=== PATIENT | female | born 2000 | race Caucasian/White ===

== ENCOUNTER → 2022-05-22 10:25 | Outpatient (BNVA) | payer MEDICAID, SELFPAY | PROVIDERS: Visit Provider Obstetrics & Gynecology | DX: Z34.90 Encounter for supervision of normal pregnancy, unspecified, unspecified trimester (principal); Z12.4 Encounter for screening for malignant neoplasm of cervix | CPT/HCPCS: 80307; 81000; 81025; 87086; 87491; 87591; 87661; 88175 ==

== ENCOUNTER → 2022-06-15 12:30 | Outpatient (BNVA) | payer MEDICAID, SELFPAY | PROVIDERS: Visit Provider Nurse Practitioner Women's Health | DX: Z34.92 Encounter for supervision of normal pregnancy, unspecified, second trimester (principal); Z3A.00 Weeks of gestation of pregnancy not specified | CPT/HCPCS: 81000; 86803; 87340; 87806 ==

== ENCOUNTER → 2022-07-10 14:19 | Outpatient (BNVA) | payer MEDICAID, SELFPAY | PROVIDERS: Visit Provider Obstetrics & Gynecology | DX: Z34.92 Encounter for supervision of normal pregnancy, unspecified, second trimester (principal); Z3A.18 18 weeks gestation of pregnancy | CPT/HCPCS: 76805 ==

== ENCOUNTER → 2022-07-13 13:45 | Outpatient (BNVA) | payer MEDICAID, SELFPAY | PROVIDERS: Visit Provider Obstetrics & Gynecology | DX: Z34.92 Encounter for supervision of normal pregnancy, unspecified, second trimester (principal) | CPT/HCPCS: 80307; 81000; 85025; 86592; 86762; 86850; 86900 ==

== ENCOUNTER → 2022-07-26 11:17 | Outpatient (BNVA) | payer MEDICAID, SELFPAY | PROVIDERS: Visit Provider Obstetrics & Gynecology | DX: O36.8190 Decreased fetal movements, unspecified trimester, not applicable or unspecified (principal); Z3A.00 Weeks of gestation of pregnancy not specified | CPT/HCPCS: 76816 ==

== ENCOUNTER 2022-07-28 11:23 | Emergency (ER) | payer MEDICAID, SELFPAY ==
[2022-07-28 11:31] VITALS: BP 109/68; PULSE 82; RESP 16; TEMP 36.6; O2SAT 98
--- NOTE | 2022-07-28 12:20 | USR_ITS ---
PROCEDURE INFORMATION: Exam: US , Limited Exam date and time: 07/28/2022 12:43 PM Age: 22 years old Clinical indication: Injury or trauma; Fall; ; Additional info: Trauma - decreased movement LABS AND CLINICAL REPORTS: Last menstrual period start date: 03/03/2022 Gestational age (Established): 21 w 0 d Estimated due date (Established): 12/08/2022 TECHNIQUE: Imaging protocol: Real-time ultrasound of the maternal uterus with image documentation. Exam focused on the clinical indication. COMPARISON: [place] [id number] 07/26/2022 11:21 AM FINDINGS: Gestation: Single live intrauterine gestation heart rate: 136 bpm presentation: Breech Placenta: Anterior. BIOMETRY: Gestational age (AUA): 21 w 4 d Femur length (FL): 3.6 cm. EGA (FL) is 21 w 4 d MATERNAL: Cervix: Unremarkable closed cervix.. US/US OB limited [id number] IMPRESSION: Single live intrauterine gestation with estimated age of 21 weeks 4 days.
--- NOTE | 2022-07-28 12:21 | W.ED.FALL ---
HPI - Fall General: Chief Complaint: Fall Stated Complaint: fall/20 wk preg Time Seen by Provider: 07/28/22 12:08 Source: patient History of Present Illness: 22-year-old female who comes in complaining of the right flank pain after a fall. She is also concerned because she is 21 weeks she is not feeling the baby move as much is normal. No vaginal bleeding, no fluid leaking. Injury occurred at 430 this morning. She slid down her front stairs, landing on the floor at the bottom. She denies hitting her head. No loss of consciousness. She states she has not felt the baby move since the fall. Associated symptoms-after fall: Denies hematuria Review of Systems : Denies: difficulty voiding, hematuria, vaginal bleeding or vaginal discharge Musc: Reports: back pain; Denies: extremity pain PFSH ED PFSH: Medical History No pertinent past medical history neghx: htn,dm, thyroid,dvt/pe PCP: None Surgical History No pertinent past surgical history Family History Denies family history of Colon cancer Pancreatic cancer Ovarian cancer Thyroid cancer Diabetes CAD (coronary artery disease) Clotting disorder Hyperlipidemia Breast cancer Cancer Hypertension Uterine cancer Stroke Physical Exam Const: COMMON NORMALS: no acute distress, average body habitus, patient oriented x3 and healthy appearing HENMT: COMMON NORMALS: normocephalic and atraumatic HEAD & SCALP: normocephalic and atraumatic Neck/C-Spine: COMMON NORMALS: full ROM and supple CERVICAL SPINE: Yes cervical ROM normal, Yes Cervical spine tenderness and Yes Paracervical muscle tenderness Resp: COMMON NORMALS: normal respiratory effort Cardio: RATE: Other (Normal heart rate) GI: OTHER: gravid uterus, abdomen is nontender Back/Pelvis: OTHER: Tenderness of the right paraspinous muscles, no bruising noted. Neuro: COMMON NORMALS: patient oriented x3 OTHER: Normal motor and sensory function. Course ED course: Patient's been evaluated in the emergency department. She had a urinalysis performed to rule out renal injury. She is also had an ultrasound to evaluate the status. On ultrasound she does have a 21-week 4-day IUP with a heart rate of 134. No signs of placental disruption. She does have a breech presentation. Urinalysis shows mild bacteriuria but is contaminated with epithelial cells and going to hold off on treating it. Feel patient stable for discharge home. She can take Tylenol as needed for pain. Ice to the sore area. Return precautions have been discussed including increased pain, vaginal bleeding, fluid leaking or lack of movement. I have instructed her to follow-up this next week with her OB doctor. Vital Signs: Vital signs: Vital Signs Temperature 97.8 F 07/28/22 11:31 Pulse Rate 82 07/28/22 11:31 Respiratory Rate 16 07/28/22 11:31 Blood Pressure 109/68 07/28/22 11:31 Pulse Oximetry 98 07/28/22 11:31 Oxygen Delivery Me thod 07/28/22 11:31 MDM - Fall Medical Decision Making 21-week 22-year-old who presents after a minor trauma fall, landing on her back at the bottom of a short stairwell, slid down the steps. She has minimal paraspinous muscular tenderness on the right. No bruising noted here. No uterine tenderness but she has not felt movement since the fall. She has not had vaginal bleeding or fluid leakage. Do not feel she has skeletal trauma as she has no C-spine tenderness, no hip tenderness, no pelvis tenderness. I do not feel that radiologic imaging of her axial skeleton is indicated. We will obtain a pelvic ultrasound to evaluate the baby. We will send urinalysis to rule out hematuria for possible renal injury. Most likely she is got contusion of the paraspinous musculature of the right flank area. Differential includes placental abruption, trauma, intrarenal injury, musculoskeletal trauma, muscular contusion Medical Records I reviewed the patient's medical records. Lab Data I reviewed the patient's lab results. Patient's urinalysis does show 0-4 white blood cells, 2+ bacteria but there is also 0-4 epithelial cells so I suspect that this is a contaminated urine specimen. I am going to hold off on treating for bacteriuria. Radiology Impressions Obstetrics Ultrasound 07/28/22 12:20 IMPRESSION: Single live intrauterine gestation with estimated age of 21 weeks 4 days. Laboratory Results Urine Color Yellow (Yellow) 07/28/22 13:35 Urine Appearance Hazy (CLEAR) A 07/28/22 13:35 Urine pH 7 (5-7) 07/28/22 13:35 Ur Specific Benson 1.010 (1.005-1.030) 07/28/22 13:35 Urine Protein Neg (Negative) 07/28/22 13:35 Urine Glucose (UA) Norm (Normal) 07/28/22 13:35 Urine Ketones Negative (Negative) 07/28/22 13:35 Urine Blood Neg (Negative) 07/28/22 13:35 Urine Nitrate Negative (Negative) 07/28/22 13:35 Urine Bilirubin Neg (Negative) 07/28/22 13:35 Urine Urobilinogen Norm mg/dL (Negative) 07/28/22 13:35 Ur Leukocyte Esterase Negative (Negative) 07/28/22 13:35 Urine RBC 0-4 /hpf (0-2) H 07/28/22 13:35 Urine WBC 0-4 /hpf (0-5) H 07/28/22 13:35 Ur Squamous Epith Cells 0-4 /hpf (0-5) H 07/28/22 13:35 Amorphous Sediment 3+ /hpf 07/28/22 13:35 Urine Bacteria 2+ /hpf (NONE) H 07/28/22 13:35 Imaging Data US: Radiologist's impression: FINDINGS: Gestation: Single live intrauterine gestation heart rate: 136 bpm presentation: Breech Placenta: Anterior. BIOMETRY: Gestational age (AUA): 21 w 4 d Femur length (FL): 3.6 cm. EGA (FL) is 21 w 4 d MATERNAL: Cervix: Unremarkable closed cervix.. / OB limited [id number] IMPRESSION: Single live intrauterine gestation with estimated age of 21 weeks 4 days. ? Discharge Plan Discharge Patient Disposition: Home Clinical Impression: Contusion of flank, Fall, Condition: Stable Prescriptions: No Action PNV cmb 35-cutw-LW-omega-3-dha [id number] mg combo pack 1 pkg PO DAILY ondansetron HCl 4 mg tablet 4 mg PO Q8H Discharge Orders: Discharge ED (Routine); Ordered 07/28/22 Ordered By: Re Solorio Referrals: Dixon Andre MD [Primary Care Provider] - Discharge Diet: Advance as tolerated Discharge Activity: Increase activity as tolerated Patient Instructions: Contusion, Opioid Safety, Pain Management Activity Restrictions/Additional Instructions: Ice to the sore area. You can take Tylenol as needed for pain. Return immediately to the ER if you start having vaginal bleeding or fluid leaking. Follow-up next week with your OB doctor Coding Level of Care Code ED [employer] for Josemanuel Bland
[2022-07-28 13:50] LABS: Add Urine Culture? No; Add Urine Microscopic? YES; Amorphous Sediment Urine 3+ /hpf; Bacteria Urine 2+ /hpf; Bilirubin Urine Neg (Negative); Blood Urine Neg (Negative); Glucose Urine UA Norm (Normal); Ketones Urine Negative (Negative); Leukocyte Esterase Urine Negative (Negative); Nitrate Urine Negative (Negative); Protein Urine Neg (Negative); RBC Urine 0-4 /hpf (0-2); Squamous Epithelial Cell Urine 0-4 /hpf (0-5); Urine Appearance Hazy (CLEAR); Urine Color Yellow (Yellow); Urobilinogen Urine Norm (Negative); WBC Urine 0-4 /hpf (0-5); pH Urine 7 (5-7)
[2022-07-28 14:26] VITALS: BP 112/66; PULSE 94; RESP 16; O2SAT 100
== END 2022-07-28 14:27 | disposition home or self-care (01) ==
PROVIDERS: Emergency Provider Emergency Medicine; PCP Obstetrics & Gynecology
DX: O26.892 Other specified pregnancy related conditions, second trimester (principal); Z3A.21 21 weeks gestation of pregnancy; S30.1XXA Contusion of abdominal wall, initial encounter; W19.XXXA Unspecified fall, initial encounter
CPT/HCPCS: 76815; 81001; 99284

== ENCOUNTER → 2022-08-22 14:04 | Outpatient (BNVA) | payer MEDICAID, SELFPAY | PROVIDERS: PCP Obstetrics & Gynecology; Visit Provider Nurse Practitioner Women's Health | DX: Z34.92 Encounter for supervision of normal pregnancy, unspecified, second trimester (principal); Z78.9 Other specified health status; Z3A.00 Weeks of gestation of pregnancy not specified | CPT/HCPCS: 80307; 81000; 82950; 86787 ==

== ENCOUNTER → 2022-09-04 13:43 | Outpatient (BNVA) | payer MEDICAID, SELFPAY | PROVIDERS: PCP Obstetrics & Gynecology; Visit Provider Obstetrics & Gynecology | DX: Z34.92 Encounter for supervision of normal pregnancy, unspecified, second trimester (principal); Z3A.00 Weeks of gestation of pregnancy not specified | CPT/HCPCS: 76816; 76820; 81000 ==

== ENCOUNTER → 2022-09-18 08:55 | Outpatient (BNVA) | payer MEDICAID, SELFPAY | PROVIDERS: PCP Obstetrics & Gynecology; Visit Provider Nurse Practitioner Women's Health | DX: Z34.90 Encounter for supervision of normal pregnancy, unspecified, unspecified trimester (principal) | CPT/HCPCS: 81000; 85025 ==

== ENCOUNTER 2022-10-02 09:08 | Outpatient (CLI) | payer MEDICAID, SELFPAY ==
--- NOTE | 2022-10-02 09:19 | US_ITS ---
WS: [id number] OB ultrasound for biophysical profile, 10/02/2022 Clinical Data: baby measuring small Comparison: OB ultrasound, 09/04/2022 Findings: There is a single intrauterine in the vertex presentation. The heart rate is 138 beat s per minute. The placenta is anterior. The biophysical profile is 8 of 8 with normal scores for breathing, movement, posture and tone and amniotic fluid volume. Measurements of growth and development: BPD 7.83 cm 31 weeks 3 days HC 29.58 cm 32 weeks 5 days AC27.30 cm 31 weeks 3 days FL 6.12 cm 31 weeks 5 days Estimated weight, 1806 g, 3 lbs. 16 oz., 50th percentile based on GA Gestational age 31 weeks 6 days [place] 11/28/2022 US/US OB lmt w/ BPP wo NST Impression: 1. Single intrauterine in vertex presentation. 2. Biophysical profile 8 of 8. 3. heart rate 138 beats per minute.
[2022-10-02 09:22] VITALS: BP 119/80; PULSE 131
[2022-10-02 09:32] VITALS: BP 114/74; PULSE 99
[2022-10-02 09:33] VITALS: RESP 18; BMI 23.8
[2022-10-02 09:43] VITALS: BP 119/80; PULSE 62
== END 2022-10-02 11:35 | disposition home or self-care (01) ==
LOC: OPOB 09:14 → OBGYN 09:14
PROVIDERS: PCP Obstetrics & Gynecology; Visit Provider Obstetrics & Gynecology
DX: Z36.9 Encounter for antenatal screening, unspecified (principal)
CPT/HCPCS: 59025; 76815; 76819; 81000

== ENCOUNTER → 2022-10-09 08:06 | Outpatient (BNVA) | payer MEDICAID, SELFPAY | PROVIDERS: PCP Obstetrics & Gynecology; Visit Provider Obstetrics & Gynecology | DX: O36.5990 Maternal care for other known or suspected poor fetal growth, unspecified trimester, not applicable or unspecified (principal); Z3A.00 Weeks of gestation of pregnancy not specified | CPT/HCPCS: 76819; 76820 ==

== ENCOUNTER 2022-10-09 09:57 | Outpatient (CLI) | payer MEDICAID, SELFPAY ==
[2022-10-09 10:06] VITALS: BP 111/71; PULSE 83
[2022-10-09 10:17] VITALS: BMI 24.0
== END 2022-10-09 11:10 | disposition home or self-care (01) ==
LOC: OPOB 10:01 → OBGYN 10:01
PROVIDERS: PCP Obstetrics & Gynecology; Visit Provider Obstetrics & Gynecology
DX: Z36.4 Encounter for antenatal screening for fetal growth retardation (principal)
CPT/HCPCS: 59025; 81000

== ENCOUNTER → 2022-10-16 10:43 | Outpatient (BNVA) | payer MEDICAID, SELFPAY | PROVIDERS: PCP Obstetrics & Gynecology; Visit Provider Obstetrics & Gynecology | DX: Z34.00 Encounter for supervision of normal first pregnancy, unspecified trimester (principal); Z3A.00 Weeks of gestation of pregnancy not specified | CPT/HCPCS: 76819; 76820 ==

== ENCOUNTER 2022-10-16 12:28 | Outpatient (CLI) | payer MEDICAID, SELFPAY ==
[2022-10-16 12:46] VITALS: RESP 15
[2022-10-16 12:48] VITALS: BMI 23.8
[2022-10-16 13:05] VITALS: BP 119/70; PULSE 93
== END 2022-10-16 13:08 | disposition home or self-care (01) ==
LOC: OPOB 12:30 → OBGYN 12:32
PROVIDERS: PCP Obstetrics & Gynecology; Visit Provider Obstetrics & Gynecology
DX: Z36.89 Encounter for other specified antenatal screening (principal); Z36.9 Encounter for antenatal screening, unspecified
CPT/HCPCS: 59025; 81000

== ENCOUNTER 2022-10-20 16:45 | Outpatient (CLI) | payer MEDICAID, SELFPAY ==
[2022-10-20] VITALS (28 sets, daily range): BP systolic 129–141; BP diastolic 71–85; PULSE 83–166; RESP 15–18; TEMP 36.1–36.9; O2SAT 94–100; BMI 23.8
[2022-10-20] MEDS: NIFEdipine 10 mg Capsule 30 MG PO (17:33)
[2022-10-20 17:35] LABS: Urine Appearance SL Hazy (CLEAR); Urine Color Straw (Yellow); pH Urine 8 (5-7)
[2022-10-20 17:36] LABS: Add Urine Culture? No; Bacteria Urine 1+ /hpf; Bilirubin Urine Neg (Negative); Blood Urine Neg (Negative); Glucose Urine UA Norm (Normal); Ketones Urine 1+ (Negative); Leukocyte Esterase Urine Trace (Negative); Nitrate Urine Negative (Negative); Protein Urine Neg (Negative); Sulfosalicylic Acid Urine Negative (Negative); Urobilinogen Urine Norm (Negative); WBC Urine 0-4 /hpf (0-5)
[2022-10-20] MEDS: hyDROXYzine 25 mg Capsule 50 MG PO (18:48)
== END 2022-10-20 20:27 | disposition home or self-care (01) ==
LOC: OPOB 16:50 → OBGYN 16:51
PROVIDERS: PCP Obstetrics & Gynecology; Visit Provider Obstetrics & Gynecology
DX: O26.899 Other specified pregnancy related conditions, unspecified trimester (principal); R10.9 Unspecified abdominal pain; Z3A.00 Weeks of gestation of pregnancy not specified
CPT/HCPCS: 59025; 81001; 96372; 99211; J3105

== ENCOUNTER 2022-10-23 17:08 | Outpatient (CLI) | payer MEDICAID, SELFPAY ==
[2022-10-23 17:19] VITALS: BP 108/68; PULSE 75
[2022-10-23 17:58] VITALS: BP 115/78; PULSE 92
[2022-10-23 17:59] VITALS: TEMP 36.7
--- NOTE | 2022-10-23 18:06 | USR_ITS ---
PROCEDURE INFORMATION: Exam: US , Limited Exam date and time: 10/23/2022 7:08 PM Age: 22 years old Clinical indication: Screening exam; Encounter for screening of mother; Third trimester (=28 weeks 0 days); ; Patient HX: G1-p0, no vag bleed, no pain. Perceives active movement. Patient had car trouble today, missed her ob appointment. Dr. Andre requested she come to [facility], wants efw, bpp, shelly; Additional info: Sga, need efw with bpp and shelly. LABS AND CLINICAL REPORTS: Last menstrual period start date: 02/20/2022 Gestational age (Established): 35 w 0 d Estimated due date (Established): 11/27/2022 TECHNIQUE: Imaging protocol: Real-time ultrasound of the maternal uterus with image documentation. Exam focused on the clinical indication. COMPARISON: US OB BPP wo NST w umb 10/16/2022 10:46 AM FINDINGS: Gestation: Intrauterine gestation. BIOMETRY: Gestational age (AUA): 37 w 2 d Estimated weight: 3087 g Biparietal diameter (BPD): 9.2 cm. EGA (BPD) is 37 w 3 d Head circumference (HC): 32.9 cm. EGA (HC) is 37 w 3 d Abdominal circumference (AC): 32.7 cm. EGA (AC) is 36 w 4 d Femur length (FL): 7.3 cm. EGA (FL) is 37 w 3 d Cephalic Index (CI): 85.9 % HC/AC: 1.01 FL/HC: 22.2 % FL/BPD: 79.6 % FL/AC: 22.4 % PROCEDURE INFORMATION: Exam: US Biophysical Profile Without Non-Stress Test Exam date and time: 10/23/2022 7:08 PM Age: 22 years old Clinical indication: Screening exam; Encounter for screening of mother; Third trimester (=28 weeks 0 days); ; Patient HX: G1-p0, no vag bleed, no pain. Perceives active movement. Patient had car trouble today, missed her ob appointment. Dr. Andre requested she come to [facility], wants efw, bpp, shelly; Additional info: Sga, need efw with bpp and shelly. TECHNIQUE: Imaging protocol: US biophysical profile without non-stress testing. COMPARISON: US OB BPP wo NST w umb 10/16/2022 10:46 AM FINDINGS: heart rate: 150 bpm presentation: Cephalic Placenta: Anterior and Right grade 1 placenta . Amniotic fluid: Amniotic fluid volume is high, consistent with polyhydramnios. Amniotic fluid index: SHELLY is 25.6 cm. BIOPHYSICAL PROFILE: breathing movement (BPP): 2/2 body movement (BPP): 2/2 tone (BPP): 2/2 Amniotic fluid (BPP): 2/2 Biophysical profile score (BPP): 8/8 MATERNAL ANATOMY: Cervix: Cervical length measures 4.5 cm. US/US OB BPP wo NST [id number] IMPRESSION: 1. Single viable intrauterine gestation estimated at 37 weeks 2 days. IMPRESSION: 1. Normal biophysical profile score of 8/8. 2. Mild polyhydramnios.
[2022-10-23 18:28] VITALS: BMI 24.1
[2022-10-23 18:37] VITALS: RESP 15
== END 2022-10-23 19:39 | disposition home or self-care (01) ==
LOC: OPOB 17:11 → OBGYN 17:12
PROVIDERS: PCP Obstetrics & Gynecology; Visit Provider Obstetrics & Gynecology
DX: Z36.89 Encounter for other specified antenatal screening (principal)
CPT/HCPCS: 59025; 76819; 81000

== ENCOUNTER → 2022-10-30 10:42 | Outpatient (BNVA) | payer MEDICAID, SELFPAY | PROVIDERS: PCP Obstetrics & Gynecology; Visit Provider Obstetrics & Gynecology | DX: Z34.93 Encounter for supervision of normal pregnancy, unspecified, third trimester (principal); Z3A.36 36 weeks gestation of pregnancy | CPT/HCPCS: 76815; 76819; 76820 ==

== ENCOUNTER 2022-10-30 11:51 | Outpatient (CLI) | payer MEDICAID, SELFPAY ==
[2022-10-30 11:51] VITALS: BMI 24.0
[2022-10-30 12:00] VITALS: BP 118/75; PULSE 93; TEMP 36.3
[2022-10-30 12:18] VITALS: RESP 16
[2022-10-30 12:22] VITALS: BP 109/72; PULSE 98
[2022-10-30 12:41] VITALS: BP 109/69; PULSE 83
== END 2022-10-30 12:53 | disposition home or self-care (01) ==
LOC: OPOB 11:54 → OBGYN 11:57
PROVIDERS: PCP Obstetrics & Gynecology; Visit Provider Obstetrics & Gynecology
DX: Z36.4 Encounter for antenatal screening for fetal growth retardation (principal)
CPT/HCPCS: 59025; 81000; 87081

== ENCOUNTER 2022-11-06 10:37 | Outpatient (CLI) | payer MEDICAID, SELFPAY ==
[2022-11-06 10:37] VITALS: BMI 26.6
[2022-11-06 10:47] VITALS: BP 111/77; PULSE 112
[2022-11-06 11:03] VITALS: BP 112/70; PULSE 96
--- NOTE | 2022-11-06 11:15 | US_ITS ---
WS: [id number] ULTRASOUND OB LIMITED TECHNIQUE: Limited ultrasound examination of the fetus. CLINICAL INFORMATION: Small for gestational age COMPARISON: October 30, 2022 FINDINGS: Single interuterine gestation. presentation is vertex Placental location is anterior. Placenta grade: 2 heart rate 160 BPM. Normal SHELLY with largest deep vertical pocket measuring 4.5 cm Biophysical profile 6 out of 8. breathin movement: 2 tone: 0 Amniotic fluid: 2 US/US OB BPP wo NST [id number] IMPRESSION: 1. Biophysical profile 6 out of 8 2. tone not visualized. 3. Normal SHELLY. 4. Presentation is vertex.
== END 2022-11-06 11:50 | disposition home or self-care (01) ==
LOC: OPOB 10:40 → OBGYN 10:42
PROVIDERS: PCP Obstetrics & Gynecology; Visit Provider Obstetrics & Gynecology
DX: Z36.4 Encounter for antenatal screening for fetal growth retardation (principal)
CPT/HCPCS: 36415; 59025; 76819; 80307; 81000; 82607; 82728; 82746; 83550; 85025; 99211

== ENCOUNTER → 2022-11-13 10:43 | Outpatient (BNVA) | payer MEDICAID, SELFPAY | PROVIDERS: PCP Obstetrics & Gynecology; Visit Provider Obstetrics & Gynecology | DX: Z34.00 Encounter for supervision of normal first pregnancy, unspecified trimester (principal); Z3A.00 Weeks of gestation of pregnancy not specified | CPT/HCPCS: 76819; 76820 ==

== ENCOUNTER 2022-11-13 13:17 | Inpatient (IN) | payer MEDICAID, SELFPAY ==
[2022-11-13] VITALS (14 sets, daily range): BP systolic 112–147; BP diastolic 67–88; PULSE 81–129; RESP 16; TEMP 36.9; BMI 24.1
[2022-11-13] MEDS: miSOPROStol 100 mcg tablet 25 MCG VAGINAL (14:19)
[2022-11-13 14:57] LABS: Basophils # 0.1 10^3/uL (0.0-0.1); Basophils % 0.5 %; Eosinophils # 0.1 10^3/uL (0.0-0.8); Eosinophils % 0.6 %; Hematocrit 37.2 % (37.0-47.0); Hemoglobin 11.8 g/dL (11.5-15.3); Lymphocytes % 19.9 %; Mean Corpuscular HGB Conc 31.7 g/dL (30.0-36.0); Mean Corpuscular Hemoglobin 26.5 pg (28.0-34.0); Mean Corpuscular Volume 83.6 fl (81-99); Mean Platelet Volume 12.7 fL (7.4-10.4); Monocytes # 0.5 10^3/uL (0.2-0.9); Monocytes % 5.3 %; Neutrophils # 7.16 10^3/uL (1.8-7.7); Neutrophils % 73.2 %; Nucleated Red Blood Cells % 0 %; Platelet Count 198 10^3/cmm (130-400); Red Blood Count 4.45 10^6/uL (4.1-5.3); White Blood Count 9.8 10^3/uL (4.0-10.0)
[2022-11-13] MEDS: lactated ringers 1,000 ML 999 ML IV ×2 (18:11→21:57)
[2022-11-13 19:33] LABS: Amphetamines Screen Urine Negative (Negative); Barbiturates Screen Urine Negative (Negative); Benzodiazepines Screen Urine Negative (Negative); Cocaine Screen Urine Negative (Negative); Opiate Screen Urine Negative (Negative); PCP Screen Urine Negative (Negative); THC Screen Urine Negative (Negative)
[2022-11-14] VITALS (79 sets, daily range): BP systolic 102–153; BP diastolic 58–87; PULSE 66–131; RESP 16–18; TEMP 36.6–37.2; O2SAT 91–100
[2022-11-14] MEDS: ondansetron 2 mg/ML SDV 2 mL 4 MG IVP (02:12)
--- NOTE | 2022-11-14 05:39 | PM.OPHPUD ---
Labor & Delivery H&P Update Date of Procedure: November 14, 2022 Date H&P Performed: 11/13/22 H&P update information: I have reviewed H&P completed within last 30 days, I have examined patient prior to procedure and Changes to prior documentation as noted here Changes to previous documentation: The patient was seen in the office today. She is being induced for IUGR and polyhydramnios. Admission Diagnosis: IUP@ 38w1d Related Problem List Diagnoses (1) Polyhydramnios affecting in third trimester: (2) Iron deficiency anemia during , antepartum: (3) Supervision of normal first : (4) Small for gestational age fetus affecting mother, antepartum:
[2022-11-14] MEDS: fentaNYL 50 mcg/mL INJ 2mL IVP ×3 (05:40→12:50)
[2022-11-14] MEDS: dextrose 5%-lactated ringers 1,000 ML 125 ML IV ×3 (06:09→19:28)
[2022-11-14] MEDS: lactated ringers 1,000 ML 999 ML IV (15:00)
--- NOTE | 2022-11-14 15:08 | ANES.PREANE2 ---
Pre-Anesthetic Assessment Height/Weight: Height 1.57 m Weight 59.874 kg Temp Pulse Resp BP Pulse Ox O2 Del Method 97.8 F 99 18 133/70 100 Room Air 11/14/22 14:00 11/14/22 15:02 11/14/22 14:00 11/14/22 15:02 11/14/22 15:02 11/13/22 14:00 Familial anesthetic complications: none Was Beta Luis taken within 24 hours: N/A Was Clonidine taken within 24 hours: N/A Social No alcohol and No tobacco Exam alert, oriented x 3, clear to auscultation bilaterally and regular rate & rhythm Airway Submandibular: within normal limits Cervical ROM: within normal limits Mallampati: Class II Dentition: full CV/HEM Anemia Anesthetic Plan ASA status: 2 Anesthesia: Regional (specify below) (Labor epidural) Medications/Allergies Home Medications Medication Instructions Recorded Confirmed Last Taken Type PNV-iron 29 mg-folic acid 1 1 pkg PO DAILY 05/22/22 11/13/22 11/11/22 08:00 History mg-omega3 250 mg-dha 200mg oral combo pack Allergies Allergy/AdvReac Type Severity Reaction Status Date / Time No Known Allergies Allergy Verified 11/13/22 10:42 Current Medications Generic Name Dose Route Start Last Admin Trade Name Yassineq PRN Reason Stop Dose Admin Fentanyl 25 - 100 mcg 11/13/22 13:44 11/14/22 12:50 Fentanyl 50 Mcg/Ml Inj 2ml IVP 50 mcg Q1H PRN Administration SEVERE PAIN Lactated Ringer's 1,000 mls @ 999 mls/hr 11/13/22 13:44 11/13/22 21:57 Lactated Ringers IV 999 mls/hr .Q1H1M PRN Administration Per L&D Rescitation Protocol Dextrose/Lactated Ringer's 1,000 mls @ 125 mls/hr 11/13/22 13:45 11/14/22 13:15 Dextrose 5%-Lactated Ringers IV 125 mls/hr .Q8H MARIBEL Administration Dextrose/Lactated Ringer's 1,000 mls @ 125 mls/hr 11/13/22 13:50 11/14/22 06:09 Dextrose 5%-Lactated Ringers IV 125 mls/hr .Q8H PRN Administration per label comments Oxytocin 30 unit/ Sodium 503 mls @ 1 mls/hr 11/14/22 00:45 11/14/22 10:00 Chloride IV 8 mls/hr .Q24H MARIBEL 8 mls/hr Titration Protocol Ondansetron HCl 4 mg 11/13/22 13:44 11/14/22 02:12 Ondansetron 2 Mg/Ml Sdv 2 Ml IVP 4 mg Q4H PRN Administration NAUSEA AND VOMITING PFSH Anesthesia Medical History No pertinent past medical history neghx: htn,dm, thyroid,dvt/pe PCP: None Surgical History No pertinent past surgical history Family History Denies family history of Colon cancer Pancreatic cancer Ovarian cancer Thyroid cancer Diabetes CAD (coronary artery disease) Clotting disorder Hyperlipidemia Breast cancer Cancer Hypertension Uterine cancer Stroke Female Reproductive History : 1 Data Anesthesia 11/13/22 14:15 Short CBC 11/13/22 Range/Units 14:15 WBC 9.8 (4.0-10.0) 10^3/uL Hgb 11.8 (11.5-15.3) g/dL Hct 37.2 (37.0-47.0) % MCV 83.6 (81-99) fl Plt Count 198 (130-400) 10^3/cmm Neut % (Auto) 73.2 % Neut # (Auto) 7.16 (1.8-7.7) 10^3/uL Cardiac Studies: No Data to Display Anesthesia Procedures Epidural Time Out Performed: Yes Consents Signed: Procedure Consent Consent: requested by attending/covering physician, from patient, risks and benefits reviewed and patient agrees to proceed Lumbar Level: L3-L4 Epidural position: sitting Epidural procedure: sterile prep of area, 1% lidocaine to numb the area, 18 g needle, neg for paresthesia, test dose given, 1.5% xylocaine 1:200k epi, 0.2% Ropivacaine bolus ml (5), placed PCEA, no systemic response, sterile dressing applied and 0.2% Ropiavacaine @ mls/hr (10) Additional Comments: JAYLEEN at 4cm, cath at 9cm
--- NOTE | 2022-11-14 23:09 | PM.DELIVERY ---
Delivery Note: Date of delivery: November 14, 2022 Pre-delivery diagnoses: Term . IUGR. Polyhydramnios. Post-delivery diagnoses: Term . Small for gestational age. Polyhydramnios Procedure: Post status vaginal delivery Delivering Physician: Dixon Andre MD Estimated blood loss (mL): 300 Delivery: The patient was noted to be complete and pushing, so was placed in the dorsal lithotomy position, prepped and draped in the usual sterile fashion for a vaginal delivery. Pt. Noted to have epidural anesthesia. At 2257 the patient delivered a viable 39 weeks female weighing 2815 g with scores of 7 and 8 at one and five minutes, respectively. The vertex was delivered spontaneously over intact perineum. The patient was asked to push and the head delivered spontaneously in the ROMERO position, over an intact perineum. A nuchal cord was checked and none noted. The anterior shoulder delivered easily and the posterior shoulder followed. The remainder of the infant was easily delivered and the oropharynx and nasopharynx was bulb suctioned. The infant was noted to have spontaneous cry and spontaneous movement of all four extremities. The cord was clamped x 2 and cut and noted to have 2 arteries and one vein. The was passed to the mother's abdomen where nursing personnel were in attendance. Cord blood sample was then obtained. The placenta delivered intact spontaneously and the uterus was explored. 20 units of Pitocin was placed in the IV bag to firm the uterus. Examination of the cervix and vaginal vault did not reveal any lacerations. A vaginal pack was then placed. Examination of the perineum showed no laceration. The vaginal pack was then removed. The patient tolerated this procedure well, and recovered in L&D with her infant in the LDR room. All sponge and needle counts were correct. Post-Delivery Status: Good and hemodynamically stable History History History 1 Term 0 0 Miscarriages/Ectopic 0 Living Children 0 Coding Level of Care Code Acute Code for Chg Fwd Diagnoses
[2022-11-15] VITALS (14 sets, daily range): BP systolic 111–133; BP diastolic 64–89; PULSE 55–115; RESP 15–16; TEMP 37.1; O2SAT 97
[2022-11-15] MEDS: lanolin oint 7 gm 1 APPLIC TOPICAL (02:28)
[2022-11-15] MEDS: benzocaine-menthol 78 gm Canister 1 SPRAY TOPICAL (02:32)
[2022-11-15] MEDS: ibuprofen 800 mg tablet PO ×3 (09:09→20:26)
[2022-11-15] MEDS: prenatal vitamin Capsule 1 CAP PO (09:09)
[2022-11-15] MEDS: docusate sodium 100 mg Capsule PO ×2 (09:09→20:26)
[2022-11-15 12:21] LABS: Hematocrit 30.7 % (37.0-47.0); Hemoglobin 9.7 g/dL (11.5-15.3); Mean Corpuscular HGB Conc 31.6 g/dL (30.0-36.0); Mean Corpuscular Volume 82.3 fl (81-99); Mean Platelet Volume 12.7 fL (7.4-10.4); Platelet Count 172 10^3/cmm (130-400); Red Blood Count 3.73 10^6/uL (4.1-5.3); Red Cell Distribution Width 14.1 % (12.1-15.1); White Blood Count 24.6 10^3/uL (4.0-10.0)
[2022-11-15] MEDS: acetaminophen 325 mg Tablet 650 MG PO (12:24)
--- NOTE | 2022-11-15 13:17 | ANE.PACU2 ---
Inpatient post-anesthesia follow up: Airway intact: Yes Vital signs: Temperature 98.8 F Pulse Rate 88 Respiratory Rate 15 Blood Pressure 111/71 Pulse Oximetry 97 Oxygen Delivery Me thod Room Air Oxygen Flow Rate Fraction of Inspir ed Oxygen Hydration adequate: Yes Nausea and vomiting: No Pain level: 2 Mental status: Baseline
[2022-11-16] MEDS: docusate sodium 100 mg Capsule PO (08:19)
[2022-11-16] MEDS: ibuprofen 800 mg tablet PO (08:19)
[2022-11-16] MEDS: prenatal vitamin Capsule 1 CAP PO (08:19)
--- NOTE | 2022-11-16 09:00 | P.DS_ITS ---
Discharge Providers PARQUETRY FLOOR LAYER Date of Admission: 11/13/22 13:17 Date of Discharge: 11/16/22 Attending Provider at Admission: Dixon Adnre MD Attending Provider at Discharge: Dixon Andre MD Primary Care Provider: Dixon Andre MD Diagnoses at Discharge Discharge Diagnosis (1) Polyhydramnios affecting in third trimester: Status: Acute (2) Iron deficiency anemia during , antepartum: Status: Acute Permanent problem details: At 30 weeks hemoglobin was down to 9; started ferrous sulfate 325 twice daily (3) Small for gestational age fetus affecting mother, antepartum: Status: Acute Qualifiers: Fetus number: single or unspecified fetus Qualified Code(s): O36.5990 - Maternal care for other known or suspected poor growth, unspecified trimester, not applicable or unspecified Reason for Visit Reason for Visit: IEP Hospital Course Hospital Course Mrs. Soto 22-year-old female established patient with an LMP of 02/20/22, and an [place]RA[place] of 11/27/22 with an estimated gestational age at 39 weeks. Admitted for elective induction due to IUGR and polyhydramnios. She progressed to have a spontaneous vaginal delivery without complications. She is afebrile and hemodynamically stable day 1. Ambulating without difficulty. She was counseled regarding pelvic rest for 6 weeks (no sex, no tampons, no vaginal douches). Return to the emergency room if any fever, increased bleeding or pain. Information Peripartum Data: Infant Delivery Method: Vaginal Physical Exam Narrative: GA; alert and oriented x 3 HEENT: normal Breasts: engorged Nipples - skin intact Lungs; clear to auscultation Heart: regular rhythm, no murmurs. Abd: Appropriately tender. BS+. Uterine fundus below umbilicus. No Fundal Tenderness. Perineum: normal lochia. Extremities: no edema, no cyanosis, no tenderness. Urinary Catheter Management: Christine: Cath Placed During This Visit: yes, but has since been removed by the nurse Reason for Continuing Indwelling Catheter: Decision to DC Catheter Urinary Catheter Date of Insertion: 11/14/22 Urinary Catheter Time of Insertion: 15:10 Date Urinary Catheter Removed: 11/14/22 Time Urinary Catheter Discontinued: 22:46 History History History 1 Term 0 0 Miscarriages/Ectopic 0 Living Children 0 Discharge Data Studies Completed and Pending Laboratory Results WBC 24.6 10^3/uL (4.0-10.0) H 11/15/22 12:00 RBC 3.73 10^6/uL (4.1-5.3) L 11/15/22 12:00 Hgb 9.7 g/dL (11.5-15.3) L 11/15/22 12:00 Hct 30.7 % (37.0-47.0) L 11/15/22 12:00 MCV 82.3 fl (81-99) 11/15/22 12:00 MCH 26.0 pg (28.0-34.0) L 11/15/22 12:00 MCHC 31.6 g/dL (30.0-36.0) 11/15/22 12:00 RDW 14.1 % (12.1-15.1) 11/15/22 12:00 Plt Count 172 10^3/cmm (130-400) 11/15/22 12:00 MPV 12.7 fL (7.4-10.4) H 11/15/22 12:00 Neut % (Auto) 73.2 % 11/13/22 14:15 Lymph % (Auto) 19.9 % 11/13/22 14:15 [place] % (Auto) 5.3 % 11/13/22 14:15 Eos % (Auto) 0.6 % 11/13/22 14:15 Baso % (Auto) 0.5 % 11/13/22 14:15 Neut # (Auto) 7.16 10^3/uL (1.8-7.7) 11/13/22 14:15 Lymph # (Auto) 2.0 10^3/uL (0.8-4.8) 11/13/22 14:15 [place] # (Auto) 0.5 10^3/uL (0.2-0.9) 11/13/22 14:15 Eos # (Auto) 0.1 10^3/uL (0.0-0.8) 11/13/22 14:15 Baso # (Auto) 0.1 10^3/uL (0.0-0.1) 11/13/22 14:15 Nucleated RBC % (auto) 0 % 11/13/22 14:15 Nucleated RBCs # 0.0 /100WBC 11/13/22 14:15 Urine Opiates Screen Negative ng/mL (Negative) 11/13/22 19:13 Ur Barbiturates Screen Negative ng/mL (Negative) 11/13/22 19:13 Ur Phencyclidine Scrn Negative ng/mL (Negative) 11/13/22 19:13 Ur Amphetamines Screen Negative ng/mL (Negative) 11/13/22 19:13 U Benzodiazepines Scrn Negative ng/mL (Negative) 11/13/22 19:13 Urine Cocaine Screen Negative ng/mL (Negative) 11/13/22 19:13 U Marijuana (THC) Screen Negative ng/mL (Negative) 11/13/22 19:13 Vitals Last Vital Signs Temp 98.8 F 11/15/22 02:55 Pulse 84 11/15/22 22:44 Resp 16 11/15/22 22:44 BP 118/69 11/15/22 22:44 Pulse Ox 97 11/15/22 16:00 O2 Del Method Room Air 11/15/22 22:44 Discharge Plan Discharge Patient Disposition: Home Condition: Stable Prescriptions: New acetaminophen 325 mg capsule 325 mg PO Q4H PRN (Reason: fever or pain) Qty: 60 0RF ibuprofen 800 mg tablet 800 mg PO TID PRN (Reason: pain) Qty: 60 0RF docusate sodium [Colace] 100 mg capsule 100 mg PO BID Qty: 60 0RF ferrous sulfate [Iron (ferrous sulfate)] 325 mg (65 mg iron) tablet 325 mg PO BID Qty: 60 0RF Continued PNV cmb 80-[id number]-PL-omega-3-dha 73-7-119-200 mg combo pack 1 pkg PO DAILY Discharge Orders: Discharge Order (Routine); Ordered 11/16/22 Ordered By: Dixon Andre Discharge Diet: Usual diet Discharge Activity: Limit activity as instructed Patient Instructions: Opioid Safety, Your [place] Appearance (GEN), Vaginal Delivery (GEN), Bleeding (GEN), Caring for Your Baby (GEN) Activity Restrictions/Additional Instructions: 1. Please call [facility] on next working day to make your appointment in 6 weeks. 2. Please stay home until you come back to the clinic on first post- hospatilization check up. 3. Please follow instructions on your medications CAREFULLY. 4. If you have abdominal incision, do not cover it unless dressing is necessary because of drainage. OK to shower, but avoid bath. Leave steri-strips until they fall off. If they are still on one week after surgery, you may remove them. 5. If you had vaginal surgery or vaginal repair, Dr. Andre may instruct you to take SITZ bath. 6. Yellow, blood tinged odorous vaginal discharge is usually normal after hysterectomy or vaginal surgeries. 7. No SEXUAL INTERCOURSE, tampons, or douches until you are completely released from the post-operative care. 8. Avoid constipation by eating right and maybe using some Metamucil or Milk of Magnesia. 9. All prescription refills are given during the working hours. Please do no wait till it runs out. Call the clinic at [phone] before your medication runs out. The clinic will get in touch with your doctor to prescribe medications if necessary. 10. Please remain within 40 mile radius from our hospital because emergencies do happen now and then during the post-operative period. 11. If you have stairs at home, take one step at a time slowly and minimize the number of trips. It helps to stay in one floor for the next few days. No lifting except what you can lift by one hand until you are released from the post-operative care. 12. Driving is discouraged until you are well healed. It may be 3-4 weeks before you feel strong enough to drive. You should be able to turn and look through the rear window without pain and you should be able to push the brake pedal very hard without pain before you drive. No fast rules, but SAFETY should be your primary concern. DO NOT drive if you are on sedating medications such as narcotics. 13. Call the clinic (during working hours) to make urgent appointment or go to the Emergency room, if any of the following occurs: i. Vaginal bleeding becomes heavy, more than a period. ii. Incision becomes red and sore, or drains pus. iii. Your TEMPERATURE is over 100.4F or you have chill. iv. IV site becomes red and swollen (a little ``knot?? is usually OK) v. Persistent nausea and vomiting vi. Persistent constipation or diarrhea vii. Rash or allergic reaction to medications. Discharge Attestations PARQUETRY FLOOR LAYER Time Spent in Discharge Care*: greater than 30 min Coding Level of Care Code Acute Code for Chg Fwd Diagnoses Polyhydramnios affecting in third trimester O40.3XX0 Iron deficiency anemia during , antepartum O99.019; D50.9 Small for gestational age fetus affecting mother, antepartum O36.5990 Fetus number: single or unspecified fetus
[2022-11-16 09:30] VITALS: BP 122/62; PULSE 78
== END 2022-11-16 11:00 | disposition home or self-care (01) | DRG 806 ==
PROVIDERS: Admitting Provider Obstetrics & Gynecology; PCP Obstetrics & Gynecology; Visit Provider Obstetrics & Gynecology
DX: O36.5930 Maternal care for other known or suspected poor fetal growth, third trimester, not applicable or unspecified (principal); O99.324 Drug use complicating childbirth; Z37.0 Single live birth; O40.3XX0 Polyhydramnios, third trimester, not applicable or unspecified; F12.90 Cannabis use, unspecified, uncomplicated; O99.02 Anemia complicating childbirth; D64.9 Anemia, unspecified; Z3A.39 39 weeks gestation of pregnancy; Z87.891 Personal history of nicotine dependence; D50.9 Iron deficiency anemia, unspecified
CPT/HCPCS: 36415; 51702; 59025; 59409; 80306; 85025; 85027; 96374; 96375; 99211; J2405; J2795; J3010; J7040; J7120; J7121

== ENCOUNTER 2023-09-23 19:29 | Outpatient (CLI) | payer MEDICAID, SELFPAY | END 2023-09-23 19:30 | disposition home or self-care (01) | PROVIDERS: PCP Obstetrics & Gynecology; Visit Provider Family Medicine | DX: R10.9 Unspecified abdominal pain (principal); N39.0 Urinary tract infection, site not specified; A64 Unspecified sexually transmitted disease; N89.8 Other specified noninflammatory disorders of vagina | CPT/HCPCS: 81000; 81025; 87077; 87086; 87184; 87491; 87591 ==

== ENCOUNTER → 2023-09-24 | Outpatient (BNVA) | payer SELFPAY | PROVIDERS: PCP Obstetrics & Gynecology; Visit Provider Family Medicine | DX: R30.9 Painful micturition, unspecified (principal); N39.0 Urinary tract infection, site not specified; A64 Unspecified sexually transmitted disease; N89.8 Other specified noninflammatory disorders of vagina; R10.9 Unspecified abdominal pain | CPT/HCPCS: 87491; 87591 ==

== ENCOUNTER → 2023-11-04 18:03 | Outpatient (BNVA) | payer MEDICAID, SELFPAY | PROVIDERS: PCP Obstetrics & Gynecology; Visit Provider Family Medicine | DX: Z32.00 Encounter for pregnancy test, result unknown (principal); N92.6 Irregular menstruation, unspecified | CPT/HCPCS: 81025; 84702 ==

== ENCOUNTER → 2023-11-25 08:18 | Outpatient (BNVA) | payer MEDICAID, SELFPAY | PROVIDERS: PCP Obstetrics & Gynecology; Visit Provider Nurse Practitioner Women's Health | DX: Z34.90 Encounter for supervision of normal pregnancy, unspecified, unspecified trimester (principal); Z3A.00 Weeks of gestation of pregnancy not specified; N92.6 Irregular menstruation, unspecified | CPT/HCPCS: 81025; 84315 ==

== ENCOUNTER → 2023-12-03 14:58 | Outpatient (BNVA) | payer MEDICAID, SELFPAY | PROVIDERS: Visit Provider Nurse Practitioner Women's Health | DX: Z34.91 Encounter for supervision of normal pregnancy, unspecified, first trimester (principal); Z3A.01 Less than 8 weeks gestation of pregnancy | CPT/HCPCS: 76801 ==

== ENCOUNTER → 2024-01-17 07:43 | Outpatient (BNVA) | payer MEDICAID, SELFPAY | PROVIDERS: Visit Provider Obstetrics & Gynecology | DX: Z34.80 Encounter for supervision of other normal pregnancy, unspecified trimester (principal) | CPT/HCPCS: 84315; 87491; 87591 ==

== ENCOUNTER → 2024-02-27 14:50 | Outpatient (BNVA) | payer MEDICAID, SELFPAY | PROVIDERS: Visit Provider Obstetrics & Gynecology | DX: Z36.2 Encounter for other antenatal screening follow-up (principal); Z3A.21 21 weeks gestation of pregnancy | CPT/HCPCS: 76805 ==

== ENCOUNTER → 2024-03-06 10:28 | Outpatient (BNVA) | payer MEDICAID, SELFPAY | PROVIDERS: Visit Provider Nurse Practitioner Women's Health | DX: Z34.80 Encounter for supervision of other normal pregnancy, unspecified trimester (principal); F12.90 Cannabis use, unspecified, uncomplicated; F17.200 Nicotine dependence, unspecified, uncomplicated; Z86.2 Personal history of diseases of the blood and blood-forming organs and certain disorders involving the immune mechanism; X58.XXXA Exposure to other specified factors, initial encounter | CPT/HCPCS: 80307; 82607; 82728; 82746; 83550; 84315; 84443; 85025; 86592; 86762; 86803; 86850; 86900; 87086; 87340; 87806 ==

== ENCOUNTER → 2024-03-20 10:24 | Outpatient (BNVA) | payer MEDICAID, SELFPAY | PROVIDERS: Visit Provider Nurse Practitioner Women's Health | DX: Z53.9 Procedure and treatment not carried out, unspecified reason (principal) | CPT/HCPCS: 84315 ==

== ENCOUNTER → 2024-03-27 10:12 | Outpatient (BNVA) | payer MEDICAID, SELFPAY | PROVIDERS: Visit Provider Nurse Practitioner Women's Health | DX: Z34.80 Encounter for supervision of other normal pregnancy, unspecified trimester (principal) | CPT/HCPCS: 82950 ==

== ENCOUNTER 2024-04-08 16:55 | Outpatient (CLI) | payer MEDICAID, SELFPAY ==
[2024-04-08 17:16] LABS: Basophils % 0.4 %; Eosinophils # 0.1 10^3/uL (0.0-0.8); Eosinophils % 1.2 %; Hematocrit 31.4 % (36-47); Lymphocytes # 2.5 10^3/uL (0.8-4.8); Lymphocytes % 29.5 %; Mean Corpuscular HGB Conc 30.9 g/dL (30-55); Mean Corpuscular Hemoglobin 25.5 pg (27-33); Mean Corpuscular Volume 82.4 fl (85-98); Mean Platelet Volume 10.9 fL (7.4-10.4); Monocytes # 0.6 10^3/uL (0.2-0.9); Monocytes % 6.7 %; Neutrophils % 61.8 %; Nucleated Red Blood Cells % 0 %; Platelet Count 223 10^3/cmm (157-399); Red Blood Count 3.81 10^6/uL (3.85-5.65); Red Cell Distribution Width 14.5 % (12.1-15.1); White Blood Count 8.55 10^3/uL (3.29-11.43)
[2024-04-08 21:12] LABS: Free T4 Free Thyroxine 1.05 ng/dL (0.82-1.77); Thyroid Stimulating Hormone 2.32 uIU/mL (0.27-4.20)
== END 2024-04-08 16:56 | disposition home or self-care (01) ==
LOC: LAB 16:56
PROVIDERS: PCP Obstetrics & Gynecology; Visit Provider Nurse Practitioner Women's Health
DX: Z34.80 Encounter for supervision of other normal pregnancy, unspecified trimester (principal); R06.02 Shortness of breath; O99.019 Anemia complicating pregnancy, unspecified trimester; D50.9 Iron deficiency anemia, unspecified; Z34.90 Encounter for supervision of normal pregnancy, unspecified, unspecified trimester
CPT/HCPCS: 36415; 84439; 84443; 85025

== ENCOUNTER → 2024-04-16 09:28 | Outpatient (BNVA) | payer MEDICAID, SELFPAY | PROVIDERS: PCP Obstetrics & Gynecology; Visit Provider Internal Medicine | DX: Z34.80 Encounter for supervision of other normal pregnancy, unspecified trimester (principal); Z3A.00 Weeks of gestation of pregnancy not specified | CPT/HCPCS: 84315; 93005 ==

== ENCOUNTER 2024-05-05 16:25 | Outpatient (CLI) | payer MEDICAID, SELFPAY ==
[2024-05-05] VITALS (16 sets, daily range): BP systolic 104–124; BP diastolic 63–78; PULSE 73–107; RESP 15; O2SAT 100; BMI 24.1
--- NOTE | 2024-05-05 17:05 | P.PN_ITS ---
MEDIA RELATIONS SPECIALIST Subjective 2 Subjective: Interval history: 24 y.o. EDC July 08, 2024 At 30 w 6 d c/o one-week history of vomiting, diarrhea, cramps can?t tolerate PO no fever, chills no abdominal pain, vaginal bleeding, fluid leakage no dysuria + active movements Labor: Amniotic Membrane Status: Intact Vitals/I&O/Wt Last Vital Signs Pulse 73 05/05/24 20:21 Resp 15 05/05/24 16:37 BP 111/63 05/05/24 20:21 Weight last 48 hrs Weight 128 lb Physical Exam 2 Narrative: VS normal General comfortable, awake, alert Abd: soft, nontender External monitor: heart tracing good variability, + accelerations LABS 05-05-24 Hgb 10.5 CMP normal UA 4+ ketones, otherwise negative Data 05/05/24 17:50 05/05/24 17:50 A&P Assessment and plan (1) Supervision of other normal : 30 w 6 d (2) Gastroenteritis: plan IV fluids, Zofran Attestations 2 Medical Necessity Statement*: patient at 30 w 6 d, with gastroenteritis and dehydration Coding Level of Care Code Acute Code for Chg Fwd Diagnoses Supervision of other normal Z34.80 Gastroenteritis K52.9 Time Spent (min) 60
[2024-05-05] MEDS: lactated ringers 1,000 ML 999 ML IV (17:30)
[2024-05-05 17:56] LABS: Bilirubin Urine Negative (Negative); Blood Urine Negative (Negative); Glucose Urine UA Negative (Normal); Ketones Urine 4+ (Negative); Leukocyte Esterase Urine Trace (Negative); Nitrate Urine Negative (Negative); Protein Urine 1+ (Negative); Specific Gravity, Urine 1.018 (1.005-1.030); Urine Appearance Cloudy (CLEAR); Urine Color Yellow (Yellow)
[2024-05-05 18:01] LABS: Bacteria Urine 1+ /hpf; Hyaline Casts Urine 1.65 /lpf; RBC Urine 0-2 /hpf (0-2); Squamous Epithelial Cell Urine 21-50 /hpf (0-5)
[2024-05-05 18:03] LABS: Add Urine Culture? No
[2024-05-05 18:13] LABS: Basophils % 0.1 %; Eosinophils % 0.3 %; Hematocrit 34.4 % (36-47); Lymphocytes # 1.4 10^3/uL (0.8-4.8); Lymphocytes % 15.9 %; Mean Corpuscular HGB Conc 30.5 g/dL (30-55); Mean Corpuscular Hemoglobin 24.4 pg (27-33); Mean Platelet Volume 11.5 fL (7.4-10.4); Monocytes # 0.7 10^3/uL (0.2-0.9); Monocytes % 8.1 %; Neutrophils # 6.77 10^3/uL (1.8-7.7); Nucleated Red Blood Cells % 0 %; Platelet Count 237 10^3/cmm (157-399); Red Cell Distribution Width 14.6 % (12.1-15.1); White Blood Count 9.02 10^3/uL (3.29-11.43)
[2024-05-05] MEDS: ondansetron 2 mg/ML SDV 2 mL 4 MG IVP (18:25)
[2024-05-05 18:43] LABS: Alanine Aminotransferase 7 U/L (0-33); Albumin Level 3.3 g/dL (3.5-5.2); Alkaline Phosphatase 130 U/L (35-105); Anion Gap 15.6 (5-19); Aspartate Amino Transferase 18 U/L (0-32); Blood Urea Nitrogen 4 mg/dL (6-20); Calcium 8.2 mg/dL (8.5-10.5); Carbon Dioxide 20 mmol/L (22-29); Chloride 106 mmol/L (98-107); Creatinine Clr Calc Pharmacy 176.1672; Globulin 3.2 g/dL (1.3-4.6); Glomerular Filtration Rate 194.5 mL/min (90-130); Glucose 77 mg/dL (65-115); Osmolality Calculated 282 mOsm/kg (285-295); Potassium 3.6 mmol/L (3.5-5.1); Sodium 138 mmol/L (136-145); Total Bilirubin 0.2 mg/dL (0.15-1.2); Total Protein 6.5 g/dL (6.6-8.7)
--- NOTE | 2024-05-05 20:15 | P.PN_ITS ---
MEMORIAL COUNSELOR Subjective 2 Subjective: Interval history: Patient states she is feeling better after IV fluids and Zofran Plan discharge to home Return if vomiting, diarrhea, abdominal pain, vaginal bleeding, fluid leakage Labor: Amniotic Membrane Status: Intact Vitals/I&O/Wt Last Vital Signs Pulse 73 05/05/24 20:21 Resp 15 05/05/24 16:37 BP 111/63 05/05/24 20:21 Weight last 48 hrs Weight 128 lb Data 05/05/24 17:50 05/05/24 17:50 A&P Assessment and plan (1) Supervision of other normal : (2) Gastroenteritis: Attestations 2 Medical Necessity Statement*: patient at 30 w 6 d with gastroenteritis, improved with IV hydration and Zofran Coding Level of Care Code Acute Code for Chg Fwd Diagnoses Supervision of other normal Z34.80 Gastroenteritis K52.9 Time Spent (min) 30
== END 2024-05-05 20:27 | disposition home or self-care (01) ==
LOC: OPOB 16:27 → OBGYN 16:28
PROVIDERS: Visit Provider Obstetrics & Gynecology
DX: Z34.80 Encounter for supervision of other normal pregnancy, unspecified trimester (principal); K52.9 Noninfective gastroenteritis and colitis, unspecified
CPT/HCPCS: 36415; 59025; 80053; 81001; 85025; 96374; 99211; J2405; J7120

== ENCOUNTER 2024-05-14 10:12 | Outpatient (CLI) | payer MEDICAID, SELFPAY ==
[2024-05-14 10:15] VITALS: BMI 22.8
[2024-05-14 10:22] VITALS: BP 112/76; PULSE 71
[2024-05-14 10:42] VITALS: BP 112/72; PULSE 67
== END 2024-05-14 10:47 | disposition home or self-care (01) ==
LOC: OPOB 10:12 → OBGYN 10:13
PROVIDERS: Visit Provider Obstetrics & Gynecology
DX: O26.899 Other specified pregnancy related conditions, unspecified trimester (principal); Z3A.00 Weeks of gestation of pregnancy not specified
CPT/HCPCS: 59025; 84315; 99211

== ENCOUNTER 2024-06-02 04:37 | Outpatient (CLI) | payer SELFPAY ==
[2024-06-02] VITALS (11 sets, daily range): BP systolic 110–148; BP diastolic 65–83; PULSE 80–127; TEMP 36.6; O2SAT 98; BMI 22.1
[2024-06-02] MEDS: ondansetron 4 MG Tablet PO (05:24)
[2024-06-02 06:04] LABS: Bilirubin Urine Negative (Negative); Blood Urine Negative (Negative); Glucose Urine UA Negative (Normal); Ketones Urine 3+ (Negative); Leukocyte Esterase Urine 1+ (Negative); Nitrate Urine Negative (Negative); Protein Urine 1+ (Negative); Urine Appearance Cloudy (CLEAR); Urine Color Dark Yellow (Yellow); pH Urine 6.5 (5-7)
[2024-06-02 06:09] LABS: Bacteria Urine Trace /hpf; RBC Urine 0-2 /hpf (0-2); WBC Urine 21-50 /hpf (0-5)
[2024-06-02] MEDS: ondansetron 2 mg/ML SDV 2 mL 4 MG IVP (06:13)
[2024-06-02] MEDS: dextrose 5%-lactated ringers 1,000 ML 125 ML IV (06:13)
[2024-06-02 06:24] LABS: Specific Gravity, Urine 1.031 (1.005-1.030)
== END 2024-06-02 09:02 | disposition home or self-care (01) ==
LOC: OPOB 04:39 → OBGYN 04:40
PROVIDERS: Visit Provider Obstetrics & Gynecology
DX: O21.9 Vomiting of pregnancy, unspecified (principal); Z3A.00 Weeks of gestation of pregnancy not specified; R10.9 Unspecified abdominal pain; R19.7 Diarrhea, unspecified
CPT/HCPCS: 59025; 81001; 99211; J2405; J7121; Q0162

== ENCOUNTER 2024-06-11 09:30 | Outpatient (CLI) | payer SELFPAY ==
[2024-06-11 09:37] VITALS: BP 122/87; PULSE 96
[2024-06-11 09:51] VITALS: BP 119/78; PULSE 112
[2024-06-11 10:06] VITALS: BP 124/81; PULSE 105
[2024-06-11 10:21] VITALS: BP 119/85; PULSE 101
[2024-06-11 10:23] VITALS: BP 126/87; PULSE 112
[2024-06-11 10:24] VITALS: BP 139/83; PULSE 83
== END 2024-06-11 10:27 | disposition home or self-care (01) ==
LOC: OPOB 09:32 → OBGYN 09:32
PROVIDERS: Visit Provider Obstetrics & Gynecology
DX: O26.899 Other specified pregnancy related conditions, unspecified trimester (principal); Z3A.00 Weeks of gestation of pregnancy not specified
CPT/HCPCS: 36415; 59025; 81000; 85025; 87081; 99211

== ENCOUNTER 2024-06-18 10:10 | Outpatient (CLI) | payer MEDICAID, SELFPAY | END 2024-06-18 10:32 | disposition home or self-care (01) | LOC: OPOB 10:11 | PROVIDERS: Absent Provider Obstetrics & Gynecology; Family Provider Obstetrics & Gynecology; Visit Provider Obstetrics & Gynecology | DX: O36.5990 Maternal care for other known or suspected poor fetal growth, unspecified trimester, not applicable or unspecified (principal); Z3A.00 Weeks of gestation of pregnancy not specified | CPT/HCPCS: 59025; 84315; 99211 ==

== ENCOUNTER 2024-06-18 10:18 | Outpatient (CLI) | payer MEDICAID, SELFPAY ==
[2024-06-18 10:15] VITALS: BMI 23.2
--- NOTE | 2024-06-18 10:25 | USR_ITS ---
PROCEDURE INFORMATION: Exam: US Biophysical Profile Without Non-Stress Test Exam date and time: 06/18/2024 10:57 AM Age: 24 years old Clinical indication: Screening exam; Routine US screening of fetus; Second trimester (14 weeks 0 days to 27 weeks 6 days); ; Additional info: Bpp. No history of recent trauma or surgery is provided. TECHNIQUE: Imaging protocol: US biophysical profile without non-stress testing. 20image(s) are provided. COMPARISON: US OB >= 14 weeks fetus [id number] 02/27/2024 2:52 PM FINDINGS: heart rate: 157 bpm Amniotic fluid index: SHELLY is 21.15 cm. The placenta appears anterior. Vertex presentation is demonstrated currently. Provided clinical gestational age of 37 weeks 1 day. There is limited , extremity survey overall. BIOPHYSICAL PROFILE: breathing (BPP): 2 /2 gross body movement (BPP): 2 /2 tone (BPP): 2 /2 Amniotic fluid (BPP): 2 /2 Biophysical profile score (BPP): 8 /8 MATERNAL ANATOMY: Cervix: Cervical length measures around 4.3 cm. No localized fluid collections are currently appreciated. No other significant interval changes are appreciated. US/US OB BPP wo NST [id number] IMPRESSION: SLIUP is demonstrated with 8/8 biophysical profile.
[2024-06-18 10:32] VITALS: BP 118/83; PULSE 86
[2024-06-18 10:47] VITALS: BP 117/82; PULSE 104
== END 2024-06-18 11:10 | disposition home or self-care (01) ==
LOC: OPOB 10:19 → OBGYN 10:20
PROVIDERS: Family Provider Obstetrics & Gynecology; Visit Provider Obstetrics & Gynecology
DX: O26.899 Other specified pregnancy related conditions, unspecified trimester (principal); Z3A.00 Weeks of gestation of pregnancy not specified
CPT/HCPCS: 59025; 76819; 99211

== ENCOUNTER → 2024-06-25 08:59 | Outpatient (BNVA) | payer MEDICAID, SELFPAY | PROVIDERS: Family Provider Obstetrics & Gynecology; Visit Provider Obstetrics & Gynecology | DX: O26.893 Other specified pregnancy related conditions, third trimester (principal); Z3A.38 38 weeks gestation of pregnancy | CPT/HCPCS: 76816 ==

== ENCOUNTER 2024-06-25 10:00 | Outpatient (CLI) | payer MEDICAID, SELFPAY ==
[2024-06-25 10:00] VITALS: BMI 23.3
[2024-06-25 10:07] VITALS: BP 129/88; PULSE 74
[2024-06-25 10:22] VITALS: BP 122/83; PULSE 88
[2024-06-25 10:34] VITALS: RESP 18
== END 2024-06-25 10:38 ==
LOC: OPOB 10:02 → OBGYN 10:03
PROVIDERS: Family Provider Obstetrics & Gynecology; Visit Provider Obstetrics & Gynecology
DX: O36.5990 Maternal care for other known or suspected poor fetal growth, unspecified trimester, not applicable or unspecified (principal); Z3A.00 Weeks of gestation of pregnancy not specified
CPT/HCPCS: 59025; 84315; 85025

== ENCOUNTER 2024-06-28 19:25 | Outpatient (CLI) | payer MEDICAID, SELFPAY ==
[2024-06-28] VITALS (9 sets, daily range): BP systolic 96–130; BP diastolic 51–90; PULSE 81–102; RESP 16; O2SAT 98; BMI 23.6
== END 2024-06-28 21:48 | disposition home or self-care (01) ==
LOC: OPOB 19:32 → OBGYN 19:34
PROVIDERS: Family Provider Obstetrics & Gynecology; Visit Provider Obstetrics & Gynecology
DX: O26.899 Other specified pregnancy related conditions, unspecified trimester (principal); Z3A.00 Weeks of gestation of pregnancy not specified; R10.9 Unspecified abdominal pain
CPT/HCPCS: 59025; 99211

== ENCOUNTER 2024-07-01 17:24 | Inpatient (IN) | payer MEDICAID, SELFPAY ==
[2024-07-01] VITALS (9 sets, daily range): BP systolic 122–129; BP diastolic 80–90; PULSE 76–113; RESP 15; TEMP 36.5; BMI 23.4
[2024-07-01 18:10] LABS: Basophils % 0.4 %; Eosinophils % 0.1 %; Hematocrit 33.4 % (36-47); Lymphocytes # 2.7 10^3/uL (0.8-4.8); Lymphocytes % 35.2 %; Mean Corpuscular HGB Conc 29.3 g/dL (30-55); Mean Corpuscular Hemoglobin 21.8 pg (27-33); Mean Corpuscular Volume 74.4 fl (85-98); Monocytes # 0.4 10^3/uL (0.2-0.9); Monocytes % 5.3 %; Neutrophils % 58.6 %; Nucleated Red Blood Cells % 0.3 %; Platelet Count 170 10^3/cmm (157-399); Red Blood Count 4.49 10^6/uL (3.85-5.65); White Blood Count 7.68 10^3/uL (3.29-11.43)
[2024-07-01 18:48] LABS: Slide Review Slide Review Perform
[2024-07-01 19:17] LABS: Amphetamines Screen Urine Negative (Negative); Barbiturates Screen Urine Negative (Negative); Benzodiazepines Screen Urine Negative (Negative); Cocaine Screen Urine Negative (Negative); Opiate Screen Urine Negative (Negative); PCP Screen Urine Negative (Negative); THC Screen Urine Negative (Negative)
[2024-07-01] MEDS: oxytocin 30 UNIT/500 ML BAG IV (19:17)
[2024-07-01] MEDS: dextrose 5%-lactated ringers 1,000 ML 125 ML IV (19:17)
[2024-07-02] VITALS (63 sets, daily range): BP systolic 101–148; BP diastolic 58–94; PULSE 63–171; RESP 16–18; TEMP 36.1–36.8; O2SAT 97–100
[2024-07-02] MEDS: dextrose 5%-lactated ringers 1,000 ML 125 ML IV (02:55)
[2024-07-02] MEDS: acetaminophen 325 mg Tablet 650 MG PO (05:31)
[2024-07-02] MEDS: lactated ringers 1,000 ML 999 ML (07:15)
[2024-07-02] MEDS: ROPivacaine syringe 100 MG/50 ML SYRINGE 10 MG EPIDURAL (07:29)
--- NOTE | 2024-07-02 07:40 | ANES.PROC ---
Anesthesia Procedures Procedure/Date: 07/02/24 Epidural: Time Out Performed: Yes Consents Signed: Procedure Consent Consent: from patient, risks and benefits reviewed and patient agrees to proceed Lumbar Level: L3-L4 Epidural position: sitting Epidural procedure: sterile prep of area, 1% lidocaine to numb the area, 18 g needle, negative for paresthesia passed, neg for paresthesia, test dose given, 1.5% xylocaine 1:200k epi, 0.2% Ropivacaine bolus ml (5 ml), placed PCEA, no systemic response, sterile dressing applied, L.U.D. no apparent complications and 0.2% Ropiavacaine @ mls/hr (10ml/hr) Additional Comments: JAYLEEN 6 , catheter 11
--- NOTE | 2024-07-02 07:42 | ANES.PREANE2 ---
Pre-Anesthetic Assessment Height/Weight: Height 1.55 m Weight 56.245 kg Temp Pulse Resp BP Pulse Ox O2 Del Method 97.3 F L 125 H 15 117/72 100 Room Air 07/02/24 03:38 07/02/24 07:38 07/01/24 17:41 07/02/24 07:38 07/02/24 07:36 07/01/24 17:42 RADHA Social No alcohol and No tobacco Airway Submandibular: within normal limits Cervical ROM: within normal limits Mallampati: Class II Dentition: full History/ROS No significant history except as noted Pulmonary None reported CV/HEM None reported None reported Hepatic None reported Metabolic None reported Neuropsych None reported Anesthetic Plan ASA status: 2 Anesthesia: Anesthesia Evaluation, Eval. for regional block and General Risk of > 500 ml blood loss (7ml/kg in children): Yes, adequate IV access and fluids planned Medications/Allergies Home Medications ?Medication ?Instructions ?Recorded ?Confirmed ?Last Taken ?Type PNV 153-FA 400 mcg-om3 35 mg-dha 1 tab PO DAILY 03/20/24 06/28/24 05/05/24 History 25 mg-epa 5 mg-fish oil chew tablet ( Gummies) Allergies Allergy/AdvReac Type Severity Reaction Status Date / Time No Known Allergies Allergy Verified 06/28/24 21:03 Current Medications Generic Name Dose Route Start Last Admin Trade Name Freq PRN Reason Stop Dose Admin Acetaminophen 650 mg 07/01/24 17:40 07/02/24 05:31 Acetaminophen 325 Mg Tablet PO 650 mg Q6H PRN Administration Mild pain or temp > 100.4 Dextrose/Lactated Ringer's 1,000 mls @ 125 mls/hr 07/01/24 17:45 07/02/24 02:55 Dextrose 5%-Lactated Ringers IV 125 mls/hr .Q8H MARIBEL Administration Oxytocin 30 unit in 500 mls @ 1 mls/hr 07/01/24 18:45 07/02/24 06:14 Pitocin IV 0 milliunit/min .Q24H MARIBEL 0 mls/hr Titration Protocol 1 MILLIUNIT/MIN PFSH Anesthesia Medical History No pertinent past medical history neghx: htn,dm, thyroid,dvt/pe PCP: None Surgical History No pertinent past surgical history Family History Denies family history of Colon cancer Pancreatic cancer Ovarian cancer Thyroid cancer Diabetes CAD (coronary artery disease) Clotting disorder Hyperlipidemia Breast cancer Cancer Hypertension Uterine cancer Stroke Social History Smoking and tobacco/nicotine status: current some day tobacco/nicotine user Female Reproductive History : 2 Data Anesthesia 07/01/24 17:50 Short CBC 07/01/24 Range/Units 17:50 WBC 7.68 (3.29-11.43) 10^3/uL Hgb 9.80 L (11.27-16.99) g/dL Hct 33.4 L (36-47) % MCV 74.4 L (85-98) fl Plt Count 170 (157-399) 10^3/cmm Neut % (Auto) 58.6 % Neut # (Auto) 4.50 (1.8-7.7) 10^3/uL Blood Bank 07/01/24 17:50 Blood Type O Positive Rho(D) Type Rh positive Antibody Screen Negative Cardiac Studies: No Data to Display
--- NOTE | 2024-07-02 08:51 | PM.OPHPUD ---
Labor & Delivery H&P Update Date of Procedure: July 02, 2024 Date H&P Performed: 06/25/24 H&P update information: I have reviewed H&P completed within last 30 days, I have examined patient prior to procedure and No changes to prior documentation Admission Diagnosis:
--- NOTE | 2024-07-02 08:52 | PM.DELIVERY ---
Delivery Note: Date of delivery: July 02, 2024 Pre-delivery diagnoses: Term Post-delivery diagnoses: Term delivered Procedure: Spontaneous vaginal delivery Delivering Physician: Dixon Andre MD Estimated blood loss (mL): 300 Delivery: The patient was noted to be complete and pushing, so was placed in the dorsal lithotomy position, prepped and draped in the usual sterile fashion for a vaginal delivery. Pt. Noted to have epidural anesthesia. At 0 835 the patient delivered a viable term infant weighing 3200 g with scores of 8 and 9 at one and five minutes, respectively. The vertex was delivered spontaneously over intact perineum. The patient was asked to push and the head delivered spontaneously in the ROMERO position, over an intact perineum. A nuchal cord was checked and 1 noted, and delivered through around head as necessary. The anterior shoulder delivered easily and the posterior shoulder followed. The remainder of the infant was easily delivered and the oropharynx and nasopharynx was bulb suctioned. The infant was noted to have spontaneous cry and spontaneous movement of all four extremities. The cord was clamped x 2 and cut and noted to have 2 arteries and one vein. The was passed to the mother's abdomen/warmerwhere nursing personnel were in attendance. Cord blood sample was then obtained. The placenta delivered intact spontaneously and the uterus was explored. 20 units of Pitocin was placed in the IV bag to firm the uterus. Examination of the cervix and vaginal vault did not reveal any lacerations. Examination of the perineum showed no lacerations. The patient tolerated this procedure well, and recovered in L&D with her infant in their LDR room. All sponge and needle counts were correct. History History History 2 Term 1 0 Miscarriages/Ectopic 0 Living Children 1 A&P Assessment and plan (1) Term delivered: Plan observation. PDMP PDMP Reviewed: Not Reviewed Coding Level of Care Code Acute Code for Chg Fwd Diagnoses Term delivered O80
[2024-07-02] MEDS: ibuprofen 800 mg tablet PO ×3 (10:00→21:31)
[2024-07-02] MEDS: benzocaine-menthol 78 gm Canister 1 SPRAY TOPICAL (10:00)
[2024-07-02] MEDS: docusate sodium 100 mg Capsule PO ×2 (10:00→18:34)
[2024-07-02] MEDS: lanolin oint 7 gm 1 APPLIC TOPICAL (10:00)
[2024-07-02] MEDS: PRENATAL VIT NO.130/IRON/FOLIC 1 EACH TABLET PO (10:00)
[2024-07-02 21:50] LABS: Hematocrit 25.1 % (36-47); Mean Corpuscular HGB Conc 29.5 g/dL (30-55); Mean Corpuscular Hemoglobin 22.6 pg (27-33); Mean Corpuscular Volume 76.5 fl (85-98); Platelet Count 133 10^3/cmm (157-399); Red Blood Count 3.28 10^6/uL (3.85-5.65); Red Cell Distribution Width 17.1 % (12.1-15.1); White Blood Count 14.86 10^3/uL (3.29-11.43)
[2024-07-03] VITALS (10 sets, daily range): BP systolic 112–138; BP diastolic 73–85; PULSE 53–77; RESP 14–16; TEMP 36.4–36.8; O2SAT 98–99
[2024-07-03] MEDS: sodium chloride 0.9% 100 mL Bag 50 ML IV ×2 (01:39→04:28)
[2024-07-03] MEDS: PRENATAL VIT NO.130/IRON/FOLIC 1 EACH TABLET PO (08:53)
[2024-07-03] MEDS: docusate sodium 100 mg Capsule PO (08:53)
[2024-07-03] MEDS: ibuprofen 800 mg tablet PO ×2 (08:53→15:44)
[2024-07-03 11:23] LABS: Basophils % 0.3 %; Eosinophils # 0.1 10^3/uL (0.0-0.8); Eosinophils % 0.6 %; Hematocrit 33.6 % (36-47); Lymphocytes # 3.2 10^3/uL (0.8-4.8); Lymphocytes % 27.1 %; Mean Corpuscular HGB Conc 30.7 g/dL (30-55); Mean Corpuscular Hemoglobin 23.1 pg (27-33); Mean Corpuscular Volume 75.5 fl (85-98); Monocytes # 0.6 10^3/uL (0.2-0.9); Monocytes % 5.2 %; Neutrophils # 7.73 10^3/uL (1.8-7.7); Neutrophils % 66.4 %; Nucleated Red Blood Cells % 0.2 %; Platelet Count 150 10^3/cmm (157-399); Red Blood Count 4.45 10^6/uL (3.85-5.65); Red Cell Distribution Width 17.3 % (12.1-15.1); White Blood Count 11.64 10^3/uL (3.29-11.43)
--- NOTE | 2024-07-03 16:48 | PM.OBGYDC ---
Discharge Providers ASSISTANT MANAGER QUALITY MANAGEMENT Date of Admission: 07/01/24 17:24 Date of Discharge: 07/03/24 Attending Provider at Admission: Dixon Andre MD Attending Provider at Discharge: Dixon Andre MD Diagnoses at Discharge Discharge Diagnosis (1) Term delivered: Status: Acute Reason for Visit Reason for Visit: IOL Hospital Course Hospital Course Ms. Soto is a 24 year old established patient with LMP of 09/19/2023 (guess), [place] 07/08/2024 based on 8 week dating ultrasound, placing her at 39-1/7 weeks. complicated by anemia. She came to labor and delivery for elective induction. She progressed to have a spontaneous vaginal delivery without complication. Overnight observation significant for anemia. She refused 2 units of packed red blood cells. She is afebrile hemodynamically stable day 1. Tolerating diet well. Ambulating without difficulty. She was counseled regarding pelvic rest for 6 weeks (no sex, no tampons, no vaginal douches). Return to the emergency room if any fever, increased bleeding or pain. Information Peripartum Data: Delivery Method: Vaginal Physical Exam Narrative: GA; alert and oriented x 3 HEENT: normal Breasts: engorged Nipples - skin intact Lungs; clear to auscultation Heart: regular rhythm, no murmurs. Abd: Appropriately tender. BS+. Uterine fundus below umbilicus. No Fundal Tenderness. Perineum: normal lochia. Extremities: no edema, no cyanosis, no tenderness. History History History 2 Term 1 0 Miscarriages/Ectopic 0 Living Children 1 Discharge Data Studies Completed and Pending Pending at discharge Category Date Time Status Pathology: Surgical [PTH] Routine Pth 07/02/24 09:48 Received Laboratory Results WBC 11.64 10^3/uL (3.29-11.43) H 07/03/24 10:40 RBC 4.45 10^6/uL (3.85-5.65) 07/03/24 10:40 Hgb 10.30 g/dL (11.27-16.99) L D 07/03/24 10:40 Hct 33.6 % (36-47) L D 07/03/24 10:40 MCV 75.5 fl (85-98) L 07/03/24 10:40 MCH 23.1 pg (27-33) L 07/03/24 10:40 MCHC 30.7 g/dL (30-55) 07/03/24 10:40 RDW 17.3 % (12.1-15.1) H 07/03/24 10:40 Plt Count 150 10^3/cmm (157-399) L 07/03/24 10:40 MPV Not Reportable 07/03/24 10:40 Neut % (Auto) 66.4 % 07/03/24 10:40 Lymph % (Auto) 27.1 % 07/03/24 10:40 Smith % (Auto) 5.2 % 07/03/24 10:40 Eos % (Auto) 0.6 % 07/03/24 10:40 Baso % (Auto) 0.3 % 07/03/24 10:40 Neut # (Auto) 7.73 10^3/uL (1.8-7.7) H 07/03/24 10:40 Lymph # (Auto) 3.2 10^3/uL (0.8-4.8) 07/03/24 10:40 Smith # (Auto) 0.6 10^3/uL (0.2-0.9) 07/03/24 10:40 Eos # (Auto) 0.1 10^3/uL (0.0-0.8) 07/03/24 10:40 Baso # (Auto) 0.0 10^3/uL (0.0-0.1) 07/03/24 10:40 Nucleated RBC % (auto) 0.2 % 07/03/24 10:40 Nucleated RBCs # 0.0 /100WBC 07/03/24 10:40 Urine Opiates Screen Negative ng/mL (Negative) 07/01/24 18:45 Ur Barbiturates Screen Negative ng/mL (Negative) 07/01/24 18:45 Ur Phencyclidine Scrn Negative ng/mL (Negative) 07/01/24 18:45 Ur Amphetamines Screen Negative ng/mL (Negative) 07/01/24 18:45 U Benzodiazepines Scrn Negative ng/mL (Negative) 07/01/24 18:45 Urine Cocaine Screen Negative ng/mL (Negative) 07/01/24 18:45 U Marijuana (THC) Screen Negative ng/mL (Negative) 07/01/24 18:45 Blood Type O Positive 07/01/24 17:50 Rho(D) Type Rh positive 07/01/24 17:50 Antibody Screen Negative 07/01/24 17:50 Crossmatch See Detail 07/01/24 17:50 Vitals Last Vital Signs Temp 97.8 F 07/03/24 05:05 Pulse 53 L 07/03/24 06:05 Resp 15 07/03/24 06:05 BP 138/78 07/03/24 06:05 Pulse Ox 99 07/03/24 05:05 O2 Del Method Room Air 07/02/24 21:00 Results Labs OB ([facility]): Obstetrics US 06/25/24 Obstetrics US/Biophysical Profile 06/18/24 Blood Type O Positive 07/01/24 Antibody Screen Negative 07/01/24 Hct 33.6 % (36-47) L 07/03/24 Hgb 10.30 g/dL (11.27-16.99) L 07/03/24 Rho(D) Type Rh positive 07/01/24 Plt Count 150 10^3/cmm (157-399) L 07/03/24 Hep Bs Antigen Non-reactive (Nonreactive) 03/06/24 Hepatitis C Antibody Non-reactive (Nonreactive) 03/06/24 Rubella IgG Antibody 65.5 IU/mL (0.0-10.0) H 03/06/24 RPR Nonreactive (Nonreactive) 03/06/24 HIV 1&2 Ab & HIV 1 Ag Non-reactive (Non-Reactiv) 03/06/24 TSH 2.32 uIU/mL (0.27-4.20) 04/08/24 Free T4 1.05 ng/dL (0.82-1.77) 04/08/24 C.trachomatis RNA (TMA) Not detected (NOT DETECTED) 01/17/24 N.gonorrhoeae RNA (TMA) Not detected (NOT DETECTED) 01/17/24 T. vaginalis Amp RNA Not detected (NOT DETECTED) 01/17/24 Chlamydia/GC Comment See note 01/17/24 Glucose 1 Hr 50 gm 87 mg/dL (85-140) 03/27/24 Ser , Semi-Qnt 3710.00 mIU/mL 11/04/23 HCG, Qual Positive (Negative) H 11/25/23 Urine Opiates Screen Negative ng/mL (Negative) 07/01/24 Ur Barbiturates Screen Negative ng/mL (Negative) 07/01/24 Ur Phencyclidine Scrn Negative ng/mL (Negative) 07/01/24 Ur Amphetamines Screen Negative ng/mL (Negative) 07/01/24 U Benzodiazepines Scrn Negative ng/mL (Negative) 07/01/24 Urine Cocaine Screen Negative ng/mL (Negative) 07/01/24 U Marijuana (THC) Screen Negative ng/mL (Negative) 07/01/24 Micro Urine Specimen 03/06/24 Discharge Plan Discharge Patient Disposition: Home Condition: Stable Prescriptions: New acetaminophen 325 mg capsule 325 mg PO Q4H PRN (Reason: fever or pain) Qty: 60 0RF ibuprofen 800 mg tablet 800 mg PO TID PRN (Reason: pain) Qty: 60 0RF docusate sodium [Colace] 100 mg capsule 100 mg PO BID Qty: 60 0RF ferrous sulfate [Iron (ferrous sulfate)] 325 mg (65 mg iron) tablet 325 mg PO BID Qty: 60 0RF Continued Gummies 400 mcg-35 mg- 25 mg-5 mg tablet,chewable 1 tab PO DAILY Discharge Orders: Discharge Order (Routine); Ordered 07/03/24 Ordered By: Dixon Andre Referrals: Dixon Andre MD [Family Provider] - 08/14/24 10:15 am (* Your 6 week appointment is with Dr. Andre on 08/15/2023 at 10:15am) Discharge Diet: Usual diet Discharge Activity: Limit activity as instructed Patient Instructions: Depression (DC), Preeclampsia During (DC), Opioid Safety (DC), Hemorrhage (DC), OB Discharge Report, OB Food/Drug Interaction Guide, Opioid Safety, OB Home Care, OB Vaginal Deliveries - [facility], Abnormal Bleeding Activity Restrictions/Additional Instructions: 1. Please call [facility] on next working day to make your post-operative appointment in 2 weeks. 2. Please stay home until you come back to the clinic on first post-hospatilization check up. 3. Please follow instructions on your medications CAREFULLY. 4. If you have abdominal incision, do not cover it unless dressing is necessary because of drainage. OK to shower, but avoid bath. Leave steri-strips until they fall off. If they are still on one week after surgery, you may remove them. 5. If you had vaginal surgery or vaginal repair, Dr. Andre may instruct you to take SITZ bath. 6. Yellow, blood tinged odorous vaginal discharge is usually normal after hysterectomy or vaginal surgeries. 7. No SEXUAL INTERCOURSE, tampons, or douches until you are completely released from the post-operative care. 8. Avoid constipation by eating right and maybe using some Metamucil or Milk of Magnesia. 9. All prescription refills are given during the working hours. Please do no wait till it runs out. Call the clinic at [phone] before your medication runs out. The clinic will get in touch with your doctor to prescribe medications if necessary. 10. Please remain within 40 mile radius from our hospital because emergencies do happen now and then during the post-operative period. 11. If you have stairs at home, take one step at a time slowly and minimize the number of trips. It helps to stay in one floor for the next few days. No lifting except what you can lift by one hand until you are released from the post-operative care. 12. Driving is discouraged until you are well healed. It may be 3-4 weeks before you feel strong enough to drive. You should be able to turn and look through the rear window without pain and you should be able to push the brake pedal very hard without pain before you drive. No fast rules, but SAFETY should be your primary concern. DO NOT drive if you are on sedating medications such as narcotics. 13. Call the clinic (during working hours) to make urgent appointment or go to the Emergency room, if any of the following occurs: i. Vaginal bleeding becomes heavy, more than a period. ii. Incision becomes red and sore, or drains pus. iii. Your TEMPERATURE is over 100.4F or you have chill. iv. IV site becomes red and swollen (a little ``knot?? is usually OK) v. Persistent nausea and vomiting vi. Persistent constipation or diarrhea vii. Rash or allergic reaction to medications. Discharge Attestations ASSISTANT MANAGER QUALITY MANAGEMENT Time Spent in Discharge Care*: greater than 30 min Coding Level of Care Code Acute Code for Chg Fwd Diagnoses Term delivered O80
--- NOTE | 2024-07-03 17:00 | ANE.PACU2 ---
Inpatient post-anesthesia follow up: Airway intact: Yes Vital signs: Temperature 97.6 F Pulse Rate 77 Respiratory Rate 15 Blood Pressure 136/85 Pulse Oximetry 98 Oxygen Delivery Me thod Room Air Oxygen Flow Rate Fraction of Inspir ed Oxygen Hydration adequate: Yes Nausea and vomiting: No Pain level: 1 Mental status: Baseline Epidural Start/End: Epidural Start Date: 07/02/24 Epidural Start Time: 07:00 Epidural End Date: 07/03/24 Epidural End Time: 12:51
== END 2024-07-03 18:07 | disposition home or self-care (01) | DRG 806 ==
LOC: OPOB 17:24 → OBGYN 17:24
PROVIDERS: Admitting Provider Obstetrics & Gynecology; Family Provider Obstetrics & Gynecology; Visit Provider Obstetrics & Gynecology
DX: O69.81X0 Labor and delivery complicated by cord around neck, without compression, not applicable or unspecified (principal); O99.324 Drug use complicating childbirth; Z37.0 Single live birth; O99.02 Anemia complicating childbirth; F12.90 Cannabis use, unspecified, uncomplicated; O99.344 Other mental disorders complicating childbirth; Z3A.39 39 weeks gestation of pregnancy; Z87.891 Personal history of nicotine dependence; F32.A Depression, unspecified
CPT/HCPCS: 36415; 36430; 59409; 80306; 85025; 85027; 86850; 86900; 86920; 88307; J2590; J2795; J7120; J7121; P9016

== ENCOUNTER 2024-07-22 08:55 | Oncology outpatient (recurring) (ONCR) | payer MEDICAID, SELFPAY ==
[2024-07-22 09:13] VITALS: BP 113/75; PULSE 82; RESP 18; TEMP 36.8; O2SAT 98
[2024-07-22] MEDS: iron sucrose 200 MG in sodium chloride 0.9% (100 ml) 100 ML IV (09:42)
[2024-07-22 10:40] VITALS: BP 108/78; PULSE 81; RESP 18; TEMP 37; O2SAT 98
== END 2024-07-24 23:59 | disposition home or self-care (01) ==
PROVIDERS: Family Provider Obstetrics & Gynecology; Visit Provider Obstetrics & Gynecology
DX: O99.013 Anemia complicating pregnancy, third trimester (principal); Z3A.00 Weeks of gestation of pregnancy not specified; D64.9 Anemia, unspecified
CPT/HCPCS: J1756

== ENCOUNTER 2024-08-07 09:02 | Oncology outpatient (recurring) (ONCR) | payer MEDICAID, SELFPAY ==
[2024-07-27] MEDS: iron sucrose 200 MG in sodium chloride 0.9% (100 ml) 100 ML IV (14:45)
[2024-07-27 15:30] VITALS: BP 117/71; PULSE 95; RESP 18; TEMP 36.8; O2SAT 98
[2024-07-31 10:19] VITALS: BP 98/62; PULSE 87; RESP 18; TEMP 36.4; O2SAT 98
[2024-07-31] MEDS: iron sucrose 200 MG in sodium chloride 0.9% (100 ml) 100 ML IV (10:33)
[2024-08-05 09:43] VITALS: BP 104/72; PULSE 76; RESP 16; TEMP 36.6; O2SAT 95
[2024-08-05] MEDS: iron sucrose 200 MG in sodium chloride 0.9% (100 ml) 100 ML IV (10:29)
[2024-08-07 09:23] VITALS: BP 104/67; PULSE 79; RESP 17; TEMP 36.4; O2SAT 100
[2024-08-07] MEDS: iron sucrose 200 MG in sodium chloride 0.9% (100 ml) 100 ML IV (10:06)
== END 2024-08-24 23:59 | disposition home or self-care (01) ==
PROVIDERS: Family Provider Obstetrics & Gynecology; Visit Provider Obstetrics & Gynecology
DX: O99.013 Anemia complicating pregnancy, third trimester (principal); Z79.899 Other long term (current) drug therapy
CPT/HCPCS: 96365; J1756

== ENCOUNTER → 2024-08-14 11:02 | Outpatient (BNVA) | payer MEDICAID, SELFPAY | PROVIDERS: Family Provider Obstetrics & Gynecology; Visit Provider Obstetrics & Gynecology | DX: Z39.2 Encounter for routine postpartum follow-up (principal); Z86.2 Personal history of diseases of the blood and blood-forming organs and certain disorders involving the immune mechanism | CPT/HCPCS: 85025 ==

== ENCOUNTER → 2024-12-21 18:24 | Outpatient (BNVA) | payer MEDICAID, SELFPAY | PROVIDERS: Family Provider Obstetrics & Gynecology; Visit Provider Nurse Practitioner | DX: J02.9 Acute pharyngitis, unspecified (principal) | CPT/HCPCS: 87880 ==

== ENCOUNTER → 2025-03-21 11:38 | Outpatient (BNVA) | payer MEDICAID, SELFPAY | PROVIDERS: Family Provider Obstetrics & Gynecology; Visit Provider Emergency Medicine | DX: N89.8 Other specified noninflammatory disorders of vagina (principal) | CPT/HCPCS: 81513; 87481; 87491; 87591; 87661 ==